=== PATIENT | male | born 2000 | race Caucasian/White ===

== ENCOUNTER 2024-02-07 18:19 | Emergency (ER) | payer MEDICAID ==
[~2024-02-07] VITALS: Ht 170.2 cm; Wt 75.0 kg
[2024-02-07 18:53] VITALS: O2SAT 100
[2024-02-07 19:15] LABS: *AMPHETAMINES SCREEN URINE NEGATIVE (NEGATIVE)
[2024-02-07 19:16] LABS: *BARBITURATES SCREEN URINE NEGATIVE (NEGATIVE); *BENZODIAZEPINES SCREEN URINE NEGATIVE (NEGATIVE); *COCAINE SCREEN URINE NEGATIVE (NEGATIVE); CANNABINOID URINE SCREEN PRESUMPTIVE POSITIVE (NEGATIVE); ECSTASY MDMA SCREEN URINE NEGATIVE (NEGATIVE); METHADONE URINE SCREEN NEGATIVE (NEGATIVE); OPIATES URINE SCREEN NEGATIVE (NEGATIVE); PHENCYCLIDINE URINE SCREEN NEGATIVE (NEGATIVE)
[2024-02-07] MEDS ORDERED: ONDANSETRON HCL 4MG/2ML INJ IM STA (23:23)
[2024-02-07] MEDS ORDERED: KETOROLAC 30MG/ML VIAL IM STA (23:23)
[2024-02-08 00:40] LABS: CHLORIDE 103 mEq/L (98-107); POTASSIUM 4.2 mEq/L (3.5-5.1); SODIUM 136 mEq/L (136-145)
[2024-02-08 00:41] LABS: CARBON DIOXIDE 26 mEq/L (21-32)
[2024-02-08 00:42] LABS: CALCIUM 9.5 mg/dL (8.7-10.4)
[2024-02-08 00:46] LABS: CREATININE 0.9 mg/dL (0.6-1.3); GLUCOSE 109 mg/dL (70-105)
[2024-02-08 00:47] LABS: UREA NITROGEN BLOOD 10 mg/dL (9-23)
[2024-02-08 00:48] LABS: ALANINE AMINOTRANSFERASE 22 IU/L (10-49); ASPARTATE AMINOTRANSFERASE 33 IU/L (<34); BASOPHILS % 0.3 % (0.0-2.0); EOSINOPHILS % 0.3 % (0.0-5.0); HEMATOCRIT. 42.4 % (42.0-52.0); HEMOGLOBIN. 14.7 g/dL (14.0-18.0); MEAN CORPUSCULAR HEMOGLOBIN 31.5 pg (28.0-32.0); MEAN CORPUSCULAR HGB CONC 34.6 g/dL (31.0-37.0); MEAN CORPUSCULAR VOLUME 91.1 fL (80.0-94.0); MEAN PLATELET VOLUME 8.6 fl (7.4-10.4); MONOCYTES % 8.4 % (2.0-8.0); PLATELET 165 x1000/uL (130-400); RED BLOOD CELL COUNT 4.66 mill/uL (4.7-6.1); RED CELL DISTRIBUTION WIDTH 12.2 % (11.6-14.6); WHITE BLOOD COUNT 7.8 x1000/uL (4.5-11.0)
[2024-02-08 00:49] LABS: BILIRUBIN DIRECT 0.1 mg/dL (<=3.0); BILIRUBIN TOTAL 0.5 mg/dL (0.1-1.0); PROTEIN TOTAL 7.8 g/dL (6.0-8.3)
[2024-02-08] MEDS ORDERED: ONDA4TAB50 PO (01:19)
[2024-02-08] MEDS ORDERED: NAPR-681 PO (01:19)
[2024-02-08] MEDS ORDERED: D-ME473S50 PO (01:19)
[2024-02-08 01:49] VITALS: BP 144/84; PULSE 90; RESP 16; TEMP 37.05852; O2SAT 100
[2024-02-08] MEDS: KETOROLAC 30MG/ML VIAL IM NR (01:50)
[2024-02-08] MEDS: ONDANSETRON HCL 4MG/2ML INJ IM NR (01:51)
== END 2024-02-08 01:49 | disposition home or self-care (01) ==
LOC: ER 18:19
DX: J06.9 Acute upper respiratory infection, unspecified (principal); R11.0 Nausea; B97.89 Other viral agents as the cause of diseases classified elsewhere; F12.10 Cannabis abuse, uncomplicated
CPT/HCPCS: 99284; 71045; 80305; 36415; 80076; 80048; 83690; 85025; 96372; J1885; J2405